=== PATIENT | female | born 1995 | race African-American/Black ===

== ENCOUNTER 2016-05-03 22:12 | Emergency (ER) | payer SELFPAY ==
[~2016-05-03] VITALS: Ht 154.9 cm; Wt 154.2 kg
[~2016-05-03 22:12] MED LIST: AUGMENTIN 500 M1 TAB PO; CLARITIN10 MG PO; CYCLOBENZAPRINE10 MG PO; Hydrocodone/Ace1 TA1 PO; IBU800 M1 PO; PROVENTIL0.09 MG/AC IH; ZITHROMAX Z PA250 MG PO
[2016-05-03] MEDS ORDERED: PROVENTIL0.09 MG/A1 INH (23:55)
[2016-05-03] MEDS ORDERED: ZITHROMAX250 MG PO (23:55)
[2016-05-03] MEDS ORDERED: PREDNISONE10 MG PO (23:55)
== END 2016-05-04 00:16 | disposition home or self-care (01) ==
LOC: ED 22:12
DX: J18.9 Pneumonia, unspecified organism (principal); J45.901 Unspecified asthma with (acute) exacerbation

== ENCOUNTER 2016-09-02 11:53 | Emergency (ER) | payer SELFPAY ==
[~2016-09-02] VITALS: Ht 152.4 cm; Wt 145.1 kg
[~2016-09-02 11:53] MED LIST changes: +PREDNISONE10 MG PO; +PROVENTIL0.09 MG/A1 INH; +ZITHROMAX250 MG PO
== END 2016-09-02 13:10 | disposition home or self-care (01) ==
LOC: ED 11:53
DX: J02.9 Acute pharyngitis, unspecified (principal); J45.909 Unspecified asthma, uncomplicated

== ENCOUNTER 2018-03-05 18:18 | Emergency (ER) | payer OTHER | END 2018-03-05 19:09 | disposition home or self-care (01) | LOC: ED 18:18 | DX: Z32.02 Encounter for pregnancy test, result negative (principal); R11.0 Nausea ==

== ENCOUNTER 2020-02-08 16:06 | Emergency (ER) | payer OTHER ==
[~2020-02-08] VITALS: Ht 152.4 cm; Wt 131.5 kg
[2020-02-08] MEDS ORDERED: ZITHROMAX250 MG PO (18:08)
== END 2020-02-08 18:27 | disposition home or self-care (01) ==
LOC: ED 16:06
DX: J40 Bronchitis, not specified as acute or chronic (principal)

== ENCOUNTER → 2020-03-16 | Outpatient (CLI) | payer OTHER | END | disposition home or self-care (01) | LOC: US 13:30 | PROVIDERS: ATTEND Nurse Practitioner Women's Health | DX: D25.2 Subserosal leiomyoma of uterus (principal); N92.1 Excessive and frequent menstruation with irregular cycle ==

== ENCOUNTER → 2020-10-05 | Outpatient (CLI) | payer OTHER | END | disposition home or self-care (01) | LOC: US 07:30 | PROVIDERS: ATTEND Nurse Practitioner Women's Health | DX: D25.2 Subserosal leiomyoma of uterus (principal) ==

== ENCOUNTER 2020-12-20 18:39 | Emergency (ER) | payer OTHER ==
[~2020-12-20] VITALS: Ht 152.4 cm; Wt 117.9 kg
[2020-12-20 22:11] LABS: HEMATOCRIT 44.3 % (37.0-47.0); MEAN CELL VOLUME 85.7 fl (81.0-99.0); MEAN CORPUSCULAR HGB 26.5 pg (27.0-31.0); MEAN CORPUSCULAR HGB CONC 30.9 g/dl (33.0-37.0); MEAN PLATELET VOLUME 11.1 fl (9.6-12.3); PLATELET COUNT AUTOMATED 248 10*3/uL (130-400); RED BLOOD COUNT 5.17 10*6/uL (4.10-5.10); RED CELL DISTRI WIDTH 13.2 % (0-14.5)
[2020-12-20 22:26] LABS: ALBUMIN 3.7 gm/dl (3.1-4.5); ALKALINE PHOSPHATASE 92 U/L (45-117); BUN 9 mg/dl (7-24); CHLORIDE 104 mmol/L (98-107); CREATININE 0.42 mg/dL (0.55-1.02); POTASSIUM 4.1 mmol/L (3.5-5.1); SGOT/AST 14 IU/L (3-35); SGPT/ALT 23 U/L (12-78); SODIUM 136 mmol/L (136-145); TOTAL PROTEIN 7.6 gm/dL (6.4-8.2)
[2020-12-20 22:45] LABS: ATYPICAL LYMPHS 3 % (0-0); PLATELET SUFFICIENCY NORMAL (NORMAL); TOTAL CELLS COUNTED 100 #CELLS
[2020-12-20 22:46] LABS: BURR CELLS FEW
[2020-12-20] MEDS ORDERED: AUGMENTIN 875875 MG PO (23:52)
== END 2020-12-21 00:10 | disposition home or self-care (01) ==
LOC: ED 18:39
PROVIDERS: Internal Medicine
DX: J02.9 Acute pharyngitis, unspecified (principal); Z20.822 Contact with and (suspected) exposure to COVID-19; D72.829 Elevated white blood cell count, unspecified; R05 Cough; R51.9 Headache, unspecified

== ENCOUNTER 2021-02-04 15:11 | Emergency (ER) | payer OTHER ==
[~2021-02-04] VITALS: Ht 152.4 cm; Wt 116.1 kg
[~2021-02-04 15:11] MED LIST changes: +AUGMENTIN 875875 MG PO
[2021-02-04] MEDS ORDERED: AUGMENTIN 875875 MG PO (15:27)
== END 2021-02-04 15:43 | disposition home or self-care (01) ==
LOC: ED 15:11
DX: J03.90 Acute tonsillitis, unspecified (principal); Z20.822 Contact with and (suspected) exposure to COVID-19

== ENCOUNTER → 2021-05-10 | Outpatient (CLI) | payer OTHER | END | disposition home or self-care (01) | LOC: US 15:00 | PROVIDERS: ATTEND Nurse Practitioner Women's Health | DX: O34.11 Maternal care for benign tumor of corpus uteri, first trimester (principal); D25.2 Subserosal leiomyoma of uterus; Z3A.09 9 weeks gestation of pregnancy ==

== ENCOUNTER 2021-06-03 19:36 | Emergency (ER) | payer OTHER ==
[~2021-06-03] VITALS: Ht 154.9 cm; Wt 118.4 kg
== END 2021-06-03 22:04 | disposition home or self-care (01) ==
LOC: ED 19:36
DX: O9A.211 Injury, poisoning and certain other consequences of external causes complicating pregnancy, first trimester (principal); S00.83XA Contusion of other part of head, initial encounter; Z3A.13 13 weeks gestation of pregnancy; V89.2XXA Person injured in unspecified motor-vehicle accident, traffic, initial encounter; Y93.89 Activity, other specified; Y92.89 Other specified places as the place of occurrence of the external cause; Y99.8 Other external cause status

== ENCOUNTER → 2021-06-17 | Outpatient (CLI) | payer OTHER | END | disposition home or self-care (01) | LOC: US 08:30 | PROVIDERS: ATTEND Nurse Practitioner Women's Health | DX: N64.4 Mastodynia (principal) ==

== ENCOUNTER → 2024-09-15 | Outpatient (CLI) | payer OTHER | END | disposition home or self-care (01) | LOC: RAD 15:55 | PROVIDERS: ATTEND Nurse Practitioner Family | DX: M79.661 Pain in right lower leg (principal); Z98.890 Other specified postprocedural states ==